=== PATIENT | male | born 2005 ===

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

== ENCOUNTER 2024-01-17 23:00 | Emergency (ER) | payer OTHER | END 2024-01-17 23:45 | disposition home or self-care (01) | LOC: ERS 23:00 | DX: Z76.0 Encounter for issue of repeat prescription (principal); K21.9 Gastro-esophageal reflux disease without esophagitis; Z79.899 Other long term (current) drug therapy | CPT/HCPCS: 99281 ==